=== PATIENT | male | born 1980 | race Caucasian/White ===

== ENCOUNTER → 2025-06-19 | Outpatient (CLI) | payer BC, SELFPAY ==
--- NOTE | 2025-06-19 09:38 | MRI_ITS ---
PROCEDURE: SPINE LUMBAR (ROUTINE) 06/19/2025 REASON FOR EXAM: DEGENERATION OF INTERVERTEBRAL DISC OF LUMBAR, PAIN IN LOW EXTREM TECHNIQUE: Procedure Code: MRISPL Modality: MR Procedure: SPINE LUMBAR (ROUTINE) COMPARISON: None provided. FINDINGS: Vertebrae: Intact. Alignment: No evidence of spondylolysis or spondylolisthesis. Conus Medullaris: Unremarkable in appearance, terminating at the upper L1 level. L1-2: Unremarkable L2-3: Unremarkable L3-4: Mild posterior facet and ligamentum flavum hypertrophy is seen. No significant spinal canal stenosis or neural foraminal narrowing is seen. L4-5: Mild posterior facet and ligamentum flavum hypertrophy is seen. A jlzf-gu-gzoylskt central rib broad-based disc protrusion is seen. Ncwa-ua-nnaozwdm spinal canal narrowing is noted. No definite neural foraminal narrowing is seen at this level. L5-S1: A mild central disc protrusion is seen. No significant spinal canal stenosis or neural foraminal narrowing is seen at this level. Sacrum: No significant abnormality seen upon limited visualization. MRI/Spine Lumbar (Routine) IMPRESSION: Lower lumbar multilevel degenerative disc disease, as described. Reading Location: [place] [id number]
== END | disposition home or self-care (01) ==
DX: M51.361 Other intervertebral disc degeneration, lumbar region with lower extremity pain only (principal); M51.26 Other intervertebral disc displacement, lumbar region
CPT/HCPCS: 72148